=== PATIENT | male | born 1985 | race Caucasian/White ===

== ENCOUNTER 2017-05-18 08:56 | Emergency (ER) | payer BC, OTHER ==
--- NOTE | 2017-05-18 09:16 | EDM.PDOC ---
ED HPI GENERAL MEDICAL PROBLEM - General Stated Complaint: WHEEZING, COUGHING STUFF UP Time Seen by Provider: 05/18/17 08:56 Source of Information: Reports: Patient History Limitations: Reports: No Limitations - History of Present Illness INITIAL COMMENTS - FREE TEXT/NARRATIVE: 32 y.o.w.m came to the ed with a minor sore throat and coughing up yellowish material, occ. Pt does not smoke or drink but is exposed to smokers at work. No other acute medical issues at this time. BP 134/91 RR 18 Pulse ox 98% temp 36.8 pulse 87 Onset Date: 05/16/17 Onset Time: 08:00 Duration: Day(s):, Intermittent Location: Reports: Face Quality: Reports: Ache, Burning Severity: Mild Improves with: Reports: None Worsens with: Reports: Other (exposture to tobacco smoking cooworkers) Associated Symptoms: Reports: No Other Symptoms - Related Data Allergies Allergy/AdvReac Type Severity Reaction Status Date / Time No Known Allergies Allergy Verified 05/18/17 09:06 Home Meds: Home Meds Sulfamethoxazole/Trimethoprim [Bactrim Ds Tablet] 1 each PO BID #20 tablet 05/18 [Rx] ED ROS ENT - Review of Systems Review Of Systems: See Below Constitutional: Reports: No Symptoms HEENT: Reports: Throat Pain Respiratory: Reports: Cough Cardiovascular: Reports: No Symptoms Endocrine: Reports: No Symptoms GI/Abdominal: Reports: No Symptoms : Reports: No Symptoms Musculoskeletal: Reports: No Symptoms Skin: Reports: No Symptoms Neurological: Reports: No Symptoms Psychiatric: Reports: No Symptoms Hematologic/Lymphatic: Reports: No Symptoms Immunologic: Reports: No Symptoms ED EXAM, ENT - Physical Exam Exam: See Below Exam Limited By: No Limitations General Appearance: Alert, WD/WN, No Apparent Distress Eye Exam: Bilateral Eye: Normal Inspection Ears: Normal External Exam, Normal Canal Nose: Normal Inspection, Normal Mucousa, No Blood Mouth/Throat: Normal Gums, Normal Lips, Normal Oropharynx, Normal Teeth, Throat Pain, Tonsillar Erythema Head: Atraumatic, Normocephalic Neck: Normal Inspection, Supple, Non-Tender, Full Range of Motion Respiratory/Chest: Rhonchi Cardiovascular: Normal Peripheral Pulses, Regular Rate, Rhythm GI/Abdominal: Normal Bowel Sounds, Soft, Non-Tender (Male) Exam: Deferred Rectal (Males) Exam: Deferred Back: Normal Inspection, Full Range of Motion Extremities: Normal Inspection, Normal Range of Motion Neurological: Alert, Oriented, CN II-XII Intact Psychiatric: Normal Affect, Normal Mood Skin: Warm, Dry, Intact Lymphatic: No Adenopathy Course - Vital Signs Text/Narrative:: 32 y.o.w.m came to the ed with a minor sore throat and coughing up yellowish material, occ. Pt does not smoke or drink but is exposed to smokers at work. No other acute medical issues at this time. BP 134/91 RR 18 Pulse ox 98% temp 36.8 pulse 87 PE: 32 y.o.w.m with a sore throat and productive cough Labs: RS test neg Cx is pending Impression: Acute bronchitis, Pharyngitis Tx: Prescription for Bactrim Plan: D/C with instructions Last Recorded V/S: Last Vital Signs Temp 36.7 C 05/18/17 09:45 Pulse 66 05/18/17 09:45 Resp 16 05/18/17 09:45 BP 133/81 05/18/17 09:45 Pulse Ox 100 05/18/17 09:45 - Orders/Labs/Meds Orders: Active Orders 24 hr Category Date Time Status CULTURE STREP A CONFIRMATION [RM] Stat Lab 05/18/17 09:10 Results STREP SCRN A RAPID W CULT CONF [RM] Stat Lab 05/18/17 09:10 Results Departure - Departure Time of Disposition: 09:33 Disposition: Home, Self-Care 01 Condition: Good Clinical Impression: Bronchitis Pharyngitis Qualifiers: Pharyngitis/tonsillitis etiology: unspecified etiology Qualified Code(s): J02.9 - Acute pharyngitis, unspecified - Discharge Information Prescriptions: Sulfamethoxazole/Trimethoprim [Bactrim Ds Tablet] 1 each PO BID #20 tablet Instructions: Pharyngitis, [id number] Referrals: Kota Caldera MD [Primary Care Provider] - Forms: ED Department Discharge Additional Instructions: Salt water gurgling, inc water intake, motrin for pain, f/u, come back if your symptoms get worse acute. - My Orders Last 24 Hours: My Active Orders 05/18/17 09:10 CULTURE STREP A CONFIRMATION [RM] Stat STREP SCRN A RAPID W CULT CONF [] Stat - Assessment/Plan Last 24 Hours: My Active Orders 05/18/17 09:10 CULTURE STREP A CONFIRMATION [RM] Stat STREP SCRN A RAPID W CULT CONF [RM] Stat
== END 2017-05-18 09:45 | disposition home or self-care (01) ==
LOC: FB.ED 08:56
DX: J40 Bronchitis, not specified as acute or chronic (principal); J02.9 Acute pharyngitis, unspecified
CPT/HCPCS: 87081; 87880-QW; 99283

== ENCOUNTER 2021-10-14 14:08 | Emergency (ER) | payer OTHER ==
[2021-10-14] MEDS ORDERED: Cyclobenzaprine 10 MG Tab PO ONE (14:28)
[2021-10-14] MEDS ORDERED: traMADol 50 MG Tab PO ONE (14:28)
== END 2021-10-14 15:30 | disposition home or self-care (01) ==
LOC: FB.ED 14:08
DX: S76.912A Strain of unspecified muscles, fascia and tendons at thigh level, left thigh, initial encounter (principal); X50.1XXA Overexertion from prolonged static or awkward postures, initial encounter; Y93.64 Activity, baseball
CPT/HCPCS: 73700; 99283; A9270